=== PATIENT | female | born 1955 | race Caucasian/White ===

== ENCOUNTER 2016-05-21 08:38 | Day surgery (SDC) | payer OTHER ==
[2016-05-21] VITALS (13 sets, daily range): BP systolic 100–167; BP diastolic 54–89; PULSE 66–159; RESP 10–19; O2SAT 95–99
[~2016-05-21] VITALS: Ht 157.5 cm; Wt 60.3 kg
[~2016-05-21 08:38] MED LIST: CYT5 PO; CeFAZolin 2 Gm/50 mL D5W IV Premix IV ONE; EPIN0.3P2 IJ; LEVO50TA6 PO; LIOT5TAB3 PO; LORC10TA PO; MONT10TA23 PO; PHEN15CA67 PO; PROGESTERONE TOP; [UNRECOGNIZED DRUG - OTHER] TOP
[2016-05-21] MEDS ORDERED: Propofol 10,000 mCg/mL 20 mL Inj ONE (08:39)
[2016-05-21] MEDS ORDERED: Dexamethasone 4 mg/mL Inj ONE (08:39)
[2016-05-21] MEDS ORDERED: Lidocaine PF 1% 30 mL Inj ONE (08:39)
[2016-05-21] MEDS ORDERED: Ondansetron 2 mg/mL 2 mL Inj ONE (08:39)
[2016-05-21] MEDS ORDERED: fentaNYL-PF 50 mCg/mL 2 mL Inj ONE (08:39)
[2016-05-21] MEDS: Lactated Ringer's 1,000 ML IV SCH ×3 (10:00→14:09)
--- NOTE | 2016-05-21 10:53 | PCM.HPANE ---
Patient Data Surgeon Admitting Provider: Attending Provider:Boogie García MD Primary Care Physician:Belinda Gracia MD Other Provider:[place] Anesthesia Reason for Visit Breast Painm Breast Hematoma,Capsular Contracture Ht/WT & BMI Height (Feet): 5 Height (Inches): 2 Weight (Kilograms): 60.3 Body Mass Index 24.00 Allergies Coded Allergies: Codeine (Verified Allergy, Mild, Nausea, 04/10/10) Past Anesthesia History Anesthesia History: Denies:: Anesthesia Reactions Diabetes History Hx Diabetes?: No MRSA MRSA: No Medications Hypertension Medication: No Home Meds Incl Beta Makenna: No Reported Medications Levothyroxine 50 Mcg Zgynqw99 Mcg PO DAILY Ref 0 05/20/16 Epinephrine (Epipen 2-Samuel)0.3 Mg/0.3 Ml Auto.injct0.3 Mg IJ 05/20/16 Liothyronine-Expunged Drug, Do Not Renew! 5 Mcg Tablet5 Mcg PO AM 04/10/10 Discontinued Reported Medications Liothyronine Sodium 5 Mcg Tablet5 Mcg PO DAILY #30 TABLET 05/20/16 Lorcaserin HCl (Belviq)10 Mg Zxrosc76 Mg PO BID 05/20/16 Montelukast 10 Mg Qxcjta45 Mg PO HS Ref 0 05/20/16 Phentermine 15 Mg Rhhtwsb24 Mg PO DAILY 05/20/16 [Bioest cream 1 %] No Conflict Check Top Daily 04/10/10 [Progesterone Cream] No Conflict Check Top Daily 10% 30GRM 04/10/10 Bupropion-Expunged Drug, Do Not Renew! (Bupropion SR-Expunged Drug, Do Not Renew !)150 Mg Onwpqu361 Mg PO DAILY 04/10/10 Levothyroxine-Expunged Drug, Do Not Renew! (Synthroid-Expunged Drug, Do Not Renew!)50 Mcg Tkcbsv57 Mcg PO DAILY 04/10/10 History History of ENT Problems?: No Hx of Heart Problems?: Yes Cardiovascular History: Positive for:: Coronary Artery Disease ( HYPERLIPIDEMIA HX ONLY) Hx of Respiratory Problem?: No Respiratory History: Positive for:: Pneumonia (WHEN SHE WAS 20) Denies:: Use of C-PAP Machine Hx Neurologic Problems?: Yes Neurological History: Positive for:: Headaches (NOT IN A LONG TIME) Hx of GI Problems?: No Other GI Pertinent History: FAMILY HX OF CHRON'S DISEASE Hx of Problems?: No Genitourinary History: Positive for:: Kidney Stones Urinary Tract Infection Female Hx: Denies:: Currently Skin History: Positive for:: History Skin Disorders? (HX OF EXCEMA) Denies:: Pressure Ulcers Hx Musculoskeletal Problems?: Yes Musculoskeletal History: Positive for:: Back Injury (SPINAL STENOSIS IN CERVICAL REGION) Musculoskeletal Trauma (FINGER) Osteoarthritis Hx of Psycho/Social Problems?: No Hx Surgeries?: Yes (BREAST AUGMENTATION,HYSTERECOMY, ACHILLES) Hx Any Other Health Problems?: Yes Other History: Positive for:: Thyroid Disease (HYPO) Hx Diabetes: No Hx Substance Use: No Stop/Bang S-Snoring: Do You Snore Loudly: No T-Tired: feel tired, fatigued: No O-Obsered: Observed not breath: No P-Blood Pressure: treated: No B- Body Mass Index > 35 kg/m2: No A- Age over 50: Yes N- Neck Large Circumference: No G- Gender Male: No SABRINA Total Score: 1 SABRINA Risk Assessment: Low Risk, <3 Yes Risk Assessment Category Category 1A: Patient has history of documented sleep apnea, and HAS NOT received any narcotic, sedative or anesthesia administration during this stay. Category 1B: Patient has history of documented sleep apnea, and HAS received any narcotic , sedative or anesthesia administration during this stay Category 2: Patient has SUSPECTED Obstructive Sleep Apnea, and HAS received any narcotic , sedative or anesthesia administration during this stay. Category 3: Patient has SUSPECTED Obstructive Sleep Apnea and HAS NOT received narcotic, sedative or anesthesia administration during this stay. Category 4: Outpatient in Procedural Areas with known sleep apnea or who screen positive for High Risk via the STOP/BANG questionnaire. Exam Exam Vital Signs Vital Signs Date Time Temp Pulse Resp B/P Pulse Ox O2 Delivery O2 Flow Rate FiO2 05/21/16 09:07 36.5 69 19 144/85 98 Room Air General Appearance: Alert, Oriented X3, Cooperative HEENT/AIRWAY: MP 3 Lungs: Clear to Auscultation Heart: Exam Unremarkable Plan Impression Patient chart reviewed, patient interviewed and anesthestic plan with risks, benefits, and alternatives discussed, and informed consent obtained. ASA Physical Status: ASA2 Mod Systemic Disease Anesthetic Plan: GA Bene/Risks/Altern/Consents: Yes HP Complete Prior to Induction: Yes Atif Keys DO May 21, 2016 09:37
[2016-05-21] MEDS ORDERED: Lactated Ringer's 500 ML IV PRN (10:54)
[2016-05-21] MEDS ORDERED: Lactated Ringer's 1,000 ML IV SCH (10:54)
[2016-05-21] MEDS ORDERED: hydrALAZINE 20 mg/mL Inj IVPUSH PRN (10:55)
[2016-05-21] MEDS ORDERED: Atropine 0.4 mg/mL Inj IVPUSH PRN (10:55)
[2016-05-21] MEDS ORDERED: MetoCLOpramide 5 mg/mL 2 mL Inj IVPUSH PRN (10:55)
[2016-05-21] MEDS ORDERED: Dexamethasone 4 mg/mL Inj IVPUSH PRN (10:55)
[2016-05-21] MEDS ORDERED: EPHEDrine Sulfate 50 mg/mL Inj IVPUSH PRN (10:55)
[2016-05-21] MEDS ORDERED: Labetalol 5 mg/mL 4 mL Inj IV PRN (10:55)
[2016-05-21] MEDS ORDERED: Ondansetron 2 mg/mL 2 mL Inj IVPUSH PRN (10:55)
[2016-05-21] MEDS ORDERED: Phenylephrine 10,000 mCg/mL Inj IVPUSH PRN (10:55)
[2016-05-21] MEDS ORDERED: oxyCODONE-Acetamin 5-325 mg Tablet PO PRN (13:00)
[2016-05-21] MEDS: fentaNYL-PF 50 mCg/mL 2 mL Inj IVPUSH PRN ×2 (13:21→13:44)
[2016-05-21] MEDS: HYDROmorphone 1 mg/mL Inj IVPUSH PRN ×2 (13:52→14:01)
--- NOTE | 2016-05-21 13:59 | PCM.ANEP1 ---
Post Anesthesia Phase 1 PACU Phase 1 Assessment Vital Signs Vital Signs Date Time Temp Pulse Resp B/P Pulse Ox O2 Delivery O2 Flow Rate FiO2 05/21/16 13:08 36.5 79 11 152/89 99 Room Air 05/21/16 09:07 36.5 69 19 144/85 98 Room Air Anesthetic Administered: GA RAMIREZ's with Equal Strength: Yes Pain: Yes Pain Scale Score: 4 Nausea or Vomiting: No Oxygen Delivery: Room Air Lungs: Clear to Auscultation Atif Keys DO May 21, 2016 13:59
--- NOTE | 2016-05-21 14:00 | PCM.ANEP2 ---
Post Anesthesia Evaluation ASA/CMS Post Anesthesia VS in Patient's Normal Range?: Yes Resp Stable; Airway Patent?: Yes CV Function & Hydration Stable: Yes Mental Status Recovered?: Yes Pain control Satisfactory?: Yes N/V Control Satisfactory?: Yes Atif Keys DO May 21, 2016 14:00
[2016-05-21] MEDS ORDERED: Lactated Ringer's 1,000 ML IV ONE (16:44)
--- NOTE | 2016-05-23 11:21 | OP ---
[address] [address] OPERATIVE REPORT PATIENT: PAULINA MILLER : 1955 MR#: [id number] ADMIT: 05/21/2016 JOB ID: [id number] CORRECTED REPORT: DATE OF SURGERY: 05/21/2016 PREOPERATIVE DIAGNOSIS(ES): 1. Right grade 4 capsular contracture. 2. Right breast hematoma. POSTOPERATIVE DIAGNOSIS(ES): 1. Right ruptured silicone implant. 2. Right breast seroma with abnormal appearing capsule. 3. Intact left breast implant. PROCEDURES: 1. Right complete capsulectomy. 2. Left complete capsulectomy. 3. Removal of bilateral silicone implants, right ruptured. SURGEON: Boogie García MD SEARCH CONSULTANT: Camilo Fernandez PA-C, who was present for necessary retraction and exposure. ESTIMATED BLOOD LOSS: 20 cc. SPECIMEN: Bilateral breast capsule to Pathology. DRAINS: A #15 round Vicente drain, one on each side. INDICATIONS FOR PROCEDURE: This is a 60-year-old female patient who is status post bilateral augmentation mammoplasty in 1999. The patient has the 2-4 week history of right breast deformity and pain with high riding and firm implant. I started her on a course of conservative management. However, the patient presented a week later with increased right breast size and increased pain. I suspected a capsular tear and a hematoma. The patient is taken back to the operating room today for bilateral capsulectomy for her capsule contracture and for symptom relief. PROCEDURE AND FINDINGS: The patient was identified in the preoperative area. Surgical site was marked. The patient was then taken back to the operating room and placed supine on the operating table. Appropriate time-outs were taken. General anesthesia was induced smoothly. The patient was then prepped and draped in the usual sterile manner. I first turned my attention to the right breast. An 8 cm incision was then made along just superior to the inframammary fold. This starts at the breast meridian and laterally. The incision was made with a #15 blade. The incision was then deepened down through the subcutaneous tissue down to the underlying periprosthetic capsule. The periprosthetic capsule appeared to be thickened and slightly edematous. I made a small capsulotomy with the electrocautery. I then used the suction to remove what appears to be a seroma. Once the seroma was removed, there was noted to be some silicone material as well. This suggested that the silicone implant was ruptured. After this has been done, the capsulotomy site was then closed with a 3-0 Vicryl lggbhg-al-jaaoi suture. I then continued to dissect the breast tissue off of the capsule along its superficial surface and medially and laterally. This was done as much as I could. I then turned my attention to the deep surface of the capsule. It was found that the capsule was quite adherent to the underlying pectoralis major muscle fiber. It was a quite tedious process to take the muscle fiber off of the capsule in certain areas. During this process, I entered the capsule and made a rent. It was noted that patient had again the ruptured silicone implant. I then made a capsulotomy along the inferior aspect of the implant capsule and the implant was removed. Once the implant had been removed, I continued to dissect the soft tissue off of the capsule circumferentially until the capsule was able to be removed from the pocket. It was noted that the patient had a cohesive type of gel. As much of the silicone gel was removed with surgical laps as possible. The pocket was then irrigated with copious amounts of saline. Hemostasis was obtained with electrocautery. I then turned my attention to the left breast. Again a similar incision was made just superior to the inframammary fold. Incision was then deepened down to the underlying periprosthetic capsule with electrocautery. It was noted that the capsule was soft and quite thin. I then proceeded to dissect most of the soft tissue off of the capsule superiorly, medially and laterally. I then turned my attention to dissecting the capsule off of the muscle. Again, the capsule was quite adherent to the underlying muscle fiber in several areas. As the capsule was quite thin, it was really difficult to perform the dissection. I again made a capsulotomy and removed the intact silicone implant. After this has been done, I continued to dissect the capsule off of superficial and medial lateral soft tissue until the anterior capsule meets with the posterior capsule. Anterior capsule was then removed with electrocautery. I then proceed to peel the posterior capsule off of the muscle. This was then passed off to Pathology as a specimen. Hemostasis was obtained with electrocautery. At this point, a #15 round Vicente drain was then placed into each surgical pocket exiting at a separate lateral stab incision. The superficial skin edge along the incision was found to be slightly traumatized. I excised approximately 0.5 cm of skin from the superior edge of the incision both sides. The incision was then reapproximated first with a layer of 3-0 Vicryl [id number] sutures reapproximating the deep tissue in the deep breast capsule. A layer of 3-0 Monocryl deep dermal sutures were then placed, followed by 4-0 Monocryl running subcuticular suture. The patient tolerated the procedure well. Needle count, sponge count, instrument counts were correct at the end of the procedure. The patient was extubated and transported to recovery in stable condition. Corrected by GS 06/24/16 at 7:48am Corrected PF
--- NOTE | 2016-05-23 14:13 | PATH ---
SURGICAL PATHOLOGY Attending Physician:Boogie García CASE STATUS: Signed Out PATIENT NAME: PAULINA MILLER PID: [id number] : 1955 DATE COLLECTED:05/21/2016 22:55 SPECIMEN: 1: Breast, Implant Capsule 2: Breast, Implant Capsule CLINICAL HISTORY: BILATERAL BREAST CAPSULE CONTRACTURE 1). RIGHT BREAST CAPSULE 2). LEFT BREAST CAPSULE FINAL DIAGNOSIS: 1. Right Breast Capsule: Breast capsule with extensive resolving fat necrosis and hyalinizing fibrosis. 2. Left Breast Capsule: Breast capsule with prominent hyalinizing fibrosis and focal chronic inflammation. ICD10: T85.44XD GROSS DESCRIPTION: The specimens are received in formalin, labeled with the patient's name, and sublabeled as the following: (1) right breast capsule; (2) left breast capsule. (1) The specimen consists of an opened breast capsule (55.7 g, 11.0 x 8.0 x 1.5 cm). The capsule is cardoso shiny firm and fibrous. No nodules, masses or lesions are identified. Section code: (1A, 1B) breast capsule, serially sectioned, sales representative sales manager. (2) The specimen consists of an opened breast capsule (20.2 g, 10.0 x 6.5 x 0.6 cm). The capsule is cardoso fibrous and semi-translucent. No nodules, masses or lesions are identified. Section code: (2A, 2B) breast capsule, serially sectioned, sales representative sales manager. 05/22/16 ICD-9 CODES: CPT CODES: 1: 94982 2: 03891 Electronically Signed Out Boyd Hackett MD [facility] Pathology [facility] [address], [place] [address] Technical component performed at [facility], [address] [place] [address] Ave[address], [place], [address]
[2016-07-22] MEDS ORDERED: PHEN15CA67 PO (07:56)
[2016-07-22] MEDS ORDERED: MONT10TA23 PO (07:56)
[2016-07-22] MEDS ORDERED: LORC10TA PO (07:56)
== END 2016-05-21 23:59 | disposition home or self-care (01) ==
LOC: SAS 08:38
PROVIDERS: ATTEND Plastic Surgery
DX: T85.44XA Capsular contracture of breast implant, initial encounter (principal); T85.49XA Other mechanical complication of breast prosthesis and implant, initial encounter; N64.4 Mastodynia; N64.89 Other specified disorders of breast; E03.9 Hypothyroidism, unspecified; E78.5 Hyperlipidemia, unspecified; G43.909 Migraine, unspecified, not intractable, without status migrainosus; M19.90 Unspecified osteoarthritis, unspecified site; L30.9 Dermatitis, unspecified; M48.02 Spinal stenosis, cervical region

== ENCOUNTER 2016-07-23 07:20 | Day surgery (SDC) | payer OTHER ==
[~2016-07-23] VITALS: Ht 157.5 cm; Wt 58.1 kg
[~2016-07-23 07:20] MED LIST changes: +0.9% Sodium Chloride 1,000 ML IV SCH; -CYT5 PO; -CeFAZolin 2 Gm/50 mL D5W IV Premix IV ONE; -LIOT5TAB3 PO; -PROGESTERONE TOP; +Sodium Chloride LOK Flush 10 mL Syringe IV PRN; -[UNRECOGNIZED DRUG - OTHER] TOP; +fentaNYL-PF 50 mCg/mL 2 mL Inj IVPUSH PRN
[2016-07-23 07:35] VITALS: BP 136/76; PULSE 74; RESP 14; O2SAT 99
[2016-07-23] MEDS ORDERED: LIOT5TAB3 PO (07:41)
[2016-07-23 08:39] VITALS: BP 126/69; PULSE 60; RESP 16; O2SAT 100
[2016-07-23 08:49] VITALS: BP 125/77; PULSE 67; RESP 16; O2SAT 100
[2016-07-23 09:00] VITALS: BP 118/69; PULSE 63; RESP 16; O2SAT 99
--- NOTE | 2016-07-23 09:07 | ENDO ---
[address] [address] ENDOSCOPY PROCEDURE PATIENT: PAULINA MILLER : 1955 MR#: [id number] ADMIT: 07/23/2016 JOB ID: [id number] PRIMARY PROVIDER: Belinda Gracia MD PROCEDURE: Colonoscopy. INDICATIONS: A 60-year-old female who reports for colon cancer screening. EQUIPMENT: Snaps-[place]. SEDATION: 4 mg Versed and 100 mcg fentanyl. COMPLICATIONS: None identified. BOWEL PREPARATION: Fair, adequate exam. PROCEDURE INFORMATION: After the risks and benefits were explained, written and verbal informed consent was obtained. The patient was brought into the endoscopy suite and placed into the left lateral decubitus position. Sedation was achieved using the above-stated medications with the addition of oxygen via nasal cannula. A digital rectal examination was accomplished and revealed the presence of internal and external, nonbleeding, nonthrombosed hemorrhoids, with one anal skin tag that had a blackness to the tip. This one measured approximately 4 mm. The scope was introduced into the rectum and advanced to the cecum as identified by the appendiceal orifice and ileocecal valve. The scope was slowly withdrawn to carefully examine the mucosa for any defects or lesions. Multiple direct views were made through the dentate line for exclusion of pathology. The colon was decompressed, the scope removed from the patient who tolerated the procedure well. FINDINGS: No significant polyps, mass lesions, or inflammatory features identified throughout. The patient had an extremely challenging navigation through the sigmoid. Quite a twisty bowel in this location. Otherwise, no pathology appreciated. ENDOSCOPIC DIAGNOSES: 1. Hemorrhoids, with external anal skin tag. 2. Visually unremarkable colonoscopy. RECOMMENDATIONS: 1. If there are any changes in the perianal region, again I would recommend primary care evaluation as needed. 2. Repeat colonoscopy in 10 years' time, sooner should symptoms warrant.
[2016-07-23 09:08] VITALS: BP 138/84; PULSE 61; RESP 16; O2SAT 98
== END 2016-07-23 23:59 | disposition home or self-care (01) ==
LOC: END 07:20
PROVIDERS: ATTEND Internal Medicine Gastroenterology
DX: Z12.11 Encounter for screening for malignant neoplasm of colon (principal); K64.4 Residual hemorrhoidal skin tags; R10.32 Left lower quadrant pain; K62.5 Hemorrhage of anus and rectum; E03.9 Hypothyroidism, unspecified; M48.02 Spinal stenosis, cervical region; M19.90 Unspecified osteoarthritis, unspecified site; E78.5 Hyperlipidemia, unspecified
CPT/HCPCS: 99153; G0121; G0500; J7030

== ENCOUNTER 2016-08-06 12:49 | Day surgery (SDC) | payer OTHER ==
[~2016-08-06] VITALS: Ht 162.6 cm; Wt 58.1 kg
--- NOTE | 2016-08-06 06:44 | PCM.HPANE ---
Patient Data Surgeon Admitting Provider: Attending Provider:Boogie García MD Primary Care Physician:Boogie García MD Other Provider:[place] Anesthesia Reason for Visit Mass Of Torso Ht/WT & BMI Height (Feet): 5 Height (Inches): 4 Weight (Kilograms): 58.060 Body Mass Index 21.00 Allergies Coded Allergies: codeine (Verified Allergy, Mild, Nausea, 08/06/16) Past Anesthesia History Anesthesia History: Denies:: Abnormal Airway, Anesthesia Reactions, Difficult Intubation, Fam Anesthesia Reaction, Fam Malignant Hypertherm, Malignant Hyperthermia Diabetes History Hx Diabetes?: No MRSA MRSA: No Medications Reported Medications Liothyronine Sodium 5 Mcg Tablet5 Mcg PO DAILY #30 TABLET 07/23/16 Lorcaserin HCl (Belviq)10 Mg Dbstea24 Mg PO BID 07/22/16 Levothyroxine 50 Mcg Ckbmdu01 Mcg PO DAILY Ref 0 05/20/16 Epinephrine (Epipen 2-Samuel)0.3 Mg/0.3 Ml Auto.injct0.3 Mg IJ 05/20/16 Discontinued Reported Medications Phentermine 15 Mg Capsule1.5 Capsule PO DAILY 07/22/16 Montelukast 10 Mg Iacldt55 Mg PO HS Ref 0 07/22/16 History History of ENT Problems?: No HEENT History: Denies:: Abnormal Airway Difficult Intubation Dysphagia Hearing Problem Hx of Heart Problems?: No Hx of Respiratory Problem?: Yes Respiratory History: Positive for:: Pneumonia (WHEN SHE WAS 20) Denies:: Tuberculosis Use of C-PAP Machine Hx Neurologic Problems?: Yes Neurological History: Positive for:: Headaches (NOT IN A LONG TIME) Denies:: CVA Dementia Hx of GI Problems?: Yes Gastrointestinal History: Positive for:: Gastroesphageal Reflux (HX ONLY) Denies:: Cirrhosis Diverticulitis Rectal Bleeding Hx of Problems?: Yes Genitourinary History: Positive for:: Kidney Stones Urinary Tract Infection Female Hx: Denies:: Currently Skin History: Denies:: History Skin Disorders? (HX OF ECZEMA) Pressure Ulcers Hx Musculoskeletal Problems?: Yes Musculoskeletal History: Positive for:: Back Injury (SPINAL STENOSIS IN CERVICAL REGION) Musculoskeletal Trauma (FINGER) Osteoarthritis Denies:: Joint Replacement Hx of Psycho/Social Problems?: No Psycho Social History: Denies:: Anxiety Hx Depression Hx Surgeries?: Yes (IMPLANT REMOVAL, HYSTO, ACHILLES TENDON REPAIR) Hx Any Other Health Problems?: Yes Other History: Positive for:: Thyroid Disease (HYPO) Hx Diabetes: No Hx Alcohol Use: YesHx Substance Use: No Smoking Status: Never Smoker Stop/Bang S-Snoring: Do You Snore Loudly: Yes T-Tired: feel tired, fatigued: No O-Obsered: Observed not breath: No P-Blood Pressure: treated: No B- Body Mass Index > 35 kg/m2: No A- Age over 50: Yes N- Neck Large Circumference: No SABRINA Category 2: Yes Risk Assessment Category Category 1A: Patient has history of documented sleep apnea, and HAS NOT received any narcotic, sedative or anesthesia administration during this stay. Category 1B: Patient has history of documented sleep apnea, and HAS received any narcotic , sedative or anesthesia administration during this stay Category 2: Patient has SUSPECTED Obstructive Sleep Apnea, and HAS received any narcotic , sedative or anesthesia administration during this stay. Category 3: Patient has SUSPECTED Obstructive Sleep Apnea and HAS NOT received narcotic, sedative or anesthesia administration during this stay. Category 4: Outpatient in Procedural Areas with known sleep apnea or who screen positive for High Risk via the STOP/BANG questionnaire. Exam Exam General Appearance: Alert, Oriented X3, Cooperative HEENT/AIRWAY: MP 2, Neck Movement (from), Mouth Opening (wnl) Lungs: Clear to Auscultation Heart: Exam Unremarkable Plan Impression Patient chart reviewed, patient interviewed and anesthestic plan with risks, benefits, and alternatives discussed, and informed consent obtained. NPO Status: 0600 WATER WITH MEDS ASA Physical Status: ASA2 Mod Systemic Disease Anesthetic Plan: MAC Bene/Risks/Altern/Consents: Yes HP Complete Prior to Induction: Yes Freddy Arevalo MD Aug 06, 2016 06:44
[~2016-08-06 12:49] MED LIST changes: -0.9% Sodium Chloride 1,000 ML IV SCH; +CeFAZolin Inj 2 GM in IV Premix 1 EACH IV SCH; +LIOT5TAB3 PO; -MONT10TA23 PO; -PHEN15CA67 PO; -Sodium Chloride LOK Flush 10 mL Syringe IV PRN; -fentaNYL-PF 50 mCg/mL 2 mL Inj IVPUSH PRN
[2016-08-06] MEDS ORDERED: Ondansetron 2 mg/mL 2 mL Inj ONE (12:50)
[2016-08-06] MEDS ORDERED: fentaNYL-PF 50 mCg/mL 2 mL Inj ONE (12:50)
[2016-08-06] MEDS ORDERED: Propofol 10,000 mCg/mL 20 mL Inj ONE (12:50)
[2016-08-06 13:12] VITALS: BP 102/88; PULSE 76; RESP 16; O2SAT 97
[2016-08-06] MEDS: Lactated Ringer's 1,000 ML IV SCH ×2 (13:28→13:55)
[2016-08-06] MEDS ORDERED: Lactated Ringer's 1,000 ML IV SCH (14:12)
[2016-08-06] MEDS ORDERED: Lactated Ringer's 500 ML IV PRN (14:12)
[2016-08-06] MEDS ORDERED: Lidocaine 1%-Epi 1:100,000 20 mL Inj INFILTRATE ONE (14:14)
[2016-08-06] MEDS ORDERED: Bupivacaine-MPF 0.25% 30 mL Inj INFILTRATE ONE (14:14)
[2016-08-06] MEDS ORDERED: Dexamethasone 4 mg/mL Inj IVPUSH PRN (14:15)
[2016-08-06] MEDS ORDERED: hydrALAZINE 20 mg/mL Inj IVPUSH PRN (14:15)
[2016-08-06] MEDS ORDERED: Atropine 0.4 mg/mL Inj IVPUSH PRN (14:15)
[2016-08-06] MEDS ORDERED: Ondansetron 2 mg/mL 2 mL Inj IVPUSH PRN (14:15)
[2016-08-06] MEDS ORDERED: fentaNYL-PF 50 mCg/mL 2 mL Inj IVPUSH PRN (14:15)
[2016-08-06] MEDS ORDERED: Labetalol 5 mg/mL 4 mL Inj IV PRN (14:15)
[2016-08-06] MEDS ORDERED: Phenylephrine 10,000 mCg/mL Inj IVPUSH PRN (14:15)
[2016-08-06] MEDS ORDERED: EPHEDrine Sulfate 50 mg/mL Inj IVPUSH PRN (14:15)
[2016-08-06] MEDS ORDERED: HYDROcodone-APAP 5-325 mg Tablet PO PRN (14:35)
--- NOTE | 2016-08-06 14:37 | PCM.ANEP1 ---
Post Anesthesia Phase 1 PACU Phase 1 Assessment Vital Signs Vital Signs Date Time Temp Pulse Resp B/P Pulse Ox O2 Delivery O2 Flow Rate FiO2 08/06/16 13:12 37.1 76 16 102/88 97 Room Air Anesthetic Administered: MAC Level of Alertness: Awake, talking RAMIREZ's with Equal Strength: Yes Pain: No Nausea or Vomiting: No Oxygen Delivery: Room Air Lungs: Normal Air Movement Fredyd Arevalo MD Aug 06, 2016 14:37
[2016-08-06 14:48] VITALS: BP 135/89; PULSE 65; RESP 16; O2SAT 99
[2016-08-06 15:30] VITALS: BP 136/88; PULSE 68; RESP 16; O2SAT 99
--- NOTE | 2016-08-07 07:19 | PCM.ANEP2 ---
Post Anesthesia Evaluation ASA/CMS Post Anesthesia VS in Patient's Normal Range?: Yes Resp Stable; Airway Patent?: Yes CV Function & Hydration Stable: Yes Mental Status Recovered?: Yes Pain control Satisfactory?: Yes N/V Control Satisfactory?: Yes Freddy Arevalo MD Aug 07, 2016 07:19
--- NOTE | 2016-08-08 10:55 | OP ---
[address] [address] OPERATIVE REPORT PATIENT: PAULINA MILLER : 1955 MR#: [id number] ADMIT: 08/06/2016 JOB ID: [id number] DATE OF SURGERY: 08/06/2016 PREOPERATIVE DIAGNOSIS(ES): Left flank mass, likely lipoma. POSTOPERATIVE DIAGNOSIS(ES): Left flank mass, likely lipoma. PROCEDURE: Excision of left flank mass, superficial, subcutaneous, 4 cm. SURGEON: Boogie García MD GYPSUM CALCINER: None. ANESTHESIA: MAC with local. COMPLICATIONS: None apparent. SPECIMEN: Left flank mass to Pathology. DRAINS: None. INDICATIONS FOR PROCEDURE: This is a 68-year-old, female patient with a left flank mass. Patient noticed this mass after her breast surgery in June 2016. Patient reports that she never really noticed this mass in the past but does not know whether she just missed did or if the mass was growing quite quickly. Ultrasound demonstrated a hypoechoic mass, likely a lipoma; however, due to the questionable quick growth, the patient elected to have this mass excised for tissue diagnosis to rule malignancy. PROCEDURE AND FINDINGS: The patient was identified in the preoperative area. Surgical site was marked. The border of the mass was marked. The patient was then taken back to the operating room placed supine on the operating table. Appropriate time-outs were taken. MAC was induced smoothly. The patient was then tilted slightly to the right, and a bump was placed under the patient's left shoulder. The patient was then prepped and draped in the usual sterile manner. Local anesthesia was then infiltrated to the surgical site around the mass and underneath the mass consisting of 1% lidocaine with epinephrine and 0.25% Marcaine. Once this has been done, an incision was then made directly over the mass along the relaxed skin tension line. This was done with a 10 blade. I then deepened the incision down to the underlying subcutaneous fat. Right when I incised through the deep fascia, I encountered a fatty mass, likely a lipoma. This was bluntly dissected free from surrounding structure and delivered through the incision. It measured approximately 4 cm x 3 cm by at 1-1.5 cm. Once the mass had been removed, I placed a layer of 3-0 Monocryl suture across the space that the mass was residing to close off the deep space. A layer of 3-0 Monocryl deep dermal sutures were then placed followed by 4-0 Monocryl running subcuticular suture. Skin glue was then applied. The patient tolerated the procedure well. Needle count, sponge count, instrument counts were correct at the end of the procedure. The patient was transported to recovery in stable condition.
--- NOTE | 2016-08-08 11:39 | PATH ---
SURGICAL PATHOLOGY Attending Physician:Boogie García CASE STATUS: Signed Out PATIENT NAME: PAULINA MILLER PID: [id number] : 1955 DATE COLLECTED:08/06/2016 00:00 SPECIMEN: Mass, NOS CLINICAL HISTORY: LEFT FLANK MASS 1). LEFT FLANK MASS FINAL DIAGNOSIS: 1.LEFT FLANK MASS: LIPOMA, NEGATIVE FOR ATYPIA. ICD10 CODE D17.39 GROSS DESCRIPTION: The specimen is received in one formalin filled container labeled with the patient's name, sublabeled "left flank mass" and consists of a 4.8 x 3.2 x 1.5 CM yellow-cardoso portion of soft tissue. The specimen is inked, 3 livestock sales representative sections are submitted in 2 cassettes. 08/07/2016 [facility] MICRO DESCRIPTION: See diagnosis. ICD-9 CODES: CPT CODES: 08423 Electronically Signed Out Boyd Hackett MD [facility] Pathology [facility] [address] [facility], [place] [address] Technical component performed at [facility], [facility] [address], [place], [address]
== END 2016-08-06 23:59 | disposition home or self-care (01) ==
LOC: SAS 12:49
PROVIDERS: ATTEND Plastic Surgery
DX: D17.1 Benign lipomatous neoplasm of skin and subcutaneous tissue of trunk (principal); R51 Headache; K21.9 Gastro-esophageal reflux disease without esophagitis; M19.90 Unspecified osteoarthritis, unspecified site; Z79.899 Other long term (current) drug therapy